=== PATIENT | female | born 1960 | race Caucasian/White ===

== ENCOUNTER 2017-11-24 22:39 | Emergency (ER) | payer MEDICARE ==
[2017-11-24 22:47] VITALS: BP 135/83; PULSE 70; RESP 15; TEMP 97.6; O2SAT 95
--- NOTE | 2017-11-24 23:41 | C.PDOC ---
History Of Present Illness 57 year old female presents to the ER with a complaint of left 5th finger pain. Patient states she was cleaning last night and as she was cleaning last night she jammed her finger on the microwave. Patient is right hand dominant. Denies weakness or numbness. Pt also notes she has been experiencing congestion and sneezing the last couple days. Yesterday her eyes (L>R) started to get itchy and she noted that they were red. Denies discharge, crusting or visual changes. No h/o seasonal allergies. Time Seen by Provider: 11/24/17 22:49 Chief Complaint (Nursing): Finger,Hand,&Wrist History Per: Patient History/Exam Limitations: no limitations Onset/Duration Of Symptoms: Days Current Symptoms Are (Timing): Still Present Exacerbating Factor(s): Strenuous Use Of Affected Area Recent travel outside of the [place]: No Past Medical History Reviewed: Historical Data, Nursing Documentation, Vital Signs Vital Signs: Last Vital Signs Temp 97.6 F 11/24/17 22:46 Pulse 70 11/24/17 22:46 Resp 15 11/24/17 22:46 BP 135/83 11/24/17 22:46 Pulse Ox 95 11/25/17 00:23 - Medical History PMH: HTN, Kidney Stones Surgical History: Back Surgery Family History: States: No Known Family Hx - Social History Hx Tobacco Use: No Hx Alcohol Use: No Hx Substance Use: No - Immunization History Hx Tetanus Toxoid Vaccination: No Hx Influenza Vaccination: No Hx Pneumococcal Vaccination: No Review Of Systems Musculoskeletal: Positive for: Hand Pain Neurological: Negative for: Weakness, Numbness Physical Exam - Physical Exam Appears: Well, Non-toxic, No Acute Distress Skin: Normal Color, Warm, Dry Head: Atraumatic, Normacephalic Eye(s): bilateral: PERRL, EOMI, Other (b/l mild injection , no purulent discharge ) Ear(s): Bilateral: Normal Nose: Other (nasal congestion) Oral Mucosa: Moist Throat: Normal, No Erythema, No Exudate Neck: Normal, Normal ROM, Supple Chest: Symmetrical Cardiovascular: Rhythm Regular Respiratory: Normal Breath Sounds, No Accessory Muscle Use Extremity: No Normal ROM (decreased ROM secodnary to pain), Capillary Refill (< 2 seconds), No Deformity, Other (Tenderness over 5th finger DIP with mild swelling.) Pulses: Left Radial: Normal, Right Radial: Normal Neurological/Psych: Oriented x3, Normal Speech, Normal Motor, Normal Sensation ED Course And Treatment O2 Sat by Pulse Oximetry: 95 (room air) Pulse Ox Interpretation: Normal - Other Rad Left hand x-ray X-Ray: Interpreted by Me, Viewed By Me Interpretation: (+) Fx at DIP of 5th phalanx Progress Note: Left hand x-ray ordered, results were negative. Patient placed in finger splint by RN. Also discussed with pt bacterial vs allergic conjunctivits with URI symtpoms. Instructed to follow up with PMD and hand speicialist in 1-2 days or return if symptoms worsen. Disposition - Disposition Referrals: Jovanni Camacho MD [Staff Provider] - Disposition: HOME/ ROUTINE Disposition Time: 23:39 Condition: STABLE Additional Instructions: Follow up with your primary medical doctor or clinic in 2-5 days for further evaluation. Take medications as prescribed. Return to the emergency department at any time if symptoms persist or worsen. Prescriptions: Guaifen/Dextromethorphan/PE [Mucinex Fast-Max Congest-Cough] 1 each PO Q6 #20 tablet Tobramycin 0.3% [Tobramycin 5 Ml] 1 drop OP Q4 #1 bottle Instructions: Finger Fracture (DC) Forms: [employer] ([place]) - Clinical Impression Clinical Impression: Finger fracture, Conjunctivitis - PA / [employer] / Resident Statement MD/DO has reviewed & agrees with the documentation as recorded. - Scribe Statement The provider has reviewed the documentation as recorded by the Scribe Jean Claude Juan All medical record entries made by the Scribe were at my direction and personally dictated by me. I have reviewed the chart and agree that the record accurately reflects my personal performance of the history, physical exam, medical decision making, and the department course for this patient. I have also personally directed, reviewed, and agree with the discharge instructions and disposition.
--- NOTE | 2017-11-25 10:47 | RAD ---
PROCEDURE: Left small finger radiographs. HISTORY: R/O FX COMPARISON: None. TECHNIQUE: AP radiograph of the left hand, as well as spot oblique and lateral images of left small finger were obtained. FINDINGS: LEFT SMALL FINGER: There is advanced osteoarthritis affecting the distal interphalangeal joint of the left small finger including joint space narrowing, cortical sclerosis and marked marginal osteophyte development. A fracture is not clearly identified on acute basis. Lesser similar changes seen throughout the remaining distal interphalangeal joints and possibly the proximal interphalangeal joint of the small finger. Remainder of the left hand (as seen on the AP view) is grossly unremarkable. SOFT TISSUES: Normal. OTHER FINDINGS: None. IMPRESSION: Advanced osteoarthritis left small finger as discussed above, particularly at the distal interphalangeal joint. No definitive acute fracture appreciable at this time.
== END 2017-11-24 23:49 | disposition home or self-care (01) ==
LOC: C.ER 22:39
DX: S62.637A Displaced fracture of distal phalanx of left little finger, initial encounter for closed fracture (principal); W22.8XXA Striking against or struck by other objects, initial encounter; Y93.E5 Activity, floor mopping and cleaning

== ENCOUNTER 2018-02-06 21:17 | Emergency (ER) | payer MEDICARE ==
[2018-02-06 21:26] VITALS: BP 135/87; PULSE 90; RESP 18; TEMP 98.3; O2SAT 98
--- NOTE | 2018-02-06 21:47 | C.PDOC ---
History Of Present Illness 57 y/o female c/o tactile temperature. bilateral ear pain and throat pian x 6 days. has not seen pmd, has not taken any analgesics at home. Time Seen by Provider: 02/06/18 21:29 Chief Complaint (Nursing): ENT Problem History Per: Patient History/Exam Limitations: None Onset/Duration Of Symptoms: Days (6) Current Symptoms Are (Timing): Worse Quality (Ear): Pain W/Touch, Redness. denies: Discharge Quality (Mouth/Throat): Tenderness Symptoms Have Been: Continuous Past Medical History Reviewed: Historical Data, Nursing Documentation, Vital Signs Vital Signs: Last Vital Signs Temp 98.3 F 02/06/18 21:23 Pulse 90 02/06/18 21:23 Resp 18 02/06/18 21:23 BP 135/87 02/06/18 21:23 Pulse Ox 98 02/06/18 21:53 - Medical History PMH: HTN, Kidney Stones, Chronic Kidney Disease Surgical History: Back Surgery Family History: States: Unknown Family Hx - Social History Hx Tobacco Use: No Hx Alcohol Use: No Hx Substance Use: No - Immunization History Hx Tetanus Toxoid Vaccination: No Hx Influenza Vaccination: No Hx Pneumococcal Vaccination: No Review Of Systems Constitutional: Positive for: Fever (subjective), Chills ENT: Positive for: Ear Pain, Throat Pain. Negative for: Ear Discharge, Nose Discharge Cardiovascular: Negative for: Chest Pain Respiratory: Negative for: Cough, Shortness of Breath Skin: Negative for: Rash Physical Exam - Physical Exam Appears: Non-toxic, Other (obvious discomfort) Skin: Warm, Dry Head: Atraumatic, Normacephalic Eye(s): bilateral: Normal Inspection Ear(s): Bilateral: TM Erythema (left tm bulging) Oral Mucosa: Moist Tongue: Normal Appearing Lips: Normal Appearing Throat: Erythema, No Exudate Neck: Supple Lymphatic: Adenopathy (submandibular) Respiratory: No Decreased Breath Sounds, No Wheezing ED Course And Treatment O2 Sat by Pulse Oximetry: 98 Medical Decision Making Medical Decision Making: pt with bilateral otitis media; d/c with amox and Tylenol. f/u pmd on monday. Disposition Counseled Patient/Family Regarding: Diagnosis, Need For Followup, Rx Given - Disposition Referrals: [facility] [Outside] Disposition: HOME/ ROUTINE Disposition Time: 21:49 Condition: GOOD Additional Instructions: Please take antibiotics three times a day until completed. Take Tylenol every 4 -6 hours for pain. May also take ibuprofen for fever or pain; alternate with tylenol. Gargle with warm salty water three times a day. Follow up with your doctor on Monday as scheduled. Prescriptions: Acetaminophen [Tylenol 325mg tab] 650 mg PO Q4 #50 tab Amoxicillin [Amoxil 500 mg Cap] 500 mg PO TID #21 cap Instructions: Ear Infections (Otitis Media) (DC) Forms: [employer] ([place]) - Clinical Impression Clinical Impression: Otitis media
== END 2018-02-06 22:15 | disposition home or self-care (01) ==
LOC: C.ER 21:17
DX: H66.93 Otitis media, unspecified, bilateral (principal)